=== PATIENT | male | born 1990 | race African-American/Black ===

== ENCOUNTER 2024-07-09 02:07 | Emergency (ER) | payer BC ==
[~2024-07-09] VITALS: Ht 193 cm; Wt 95.3 kg
[2024-07-09] MEDS ORDERED: ACETAMINOPHEN 500 MG TABLET ONE (04:44)
[2024-07-09 04:45] VITALS: TEMP 102.7
[2024-07-09] MEDS: ACETAMINOPHEN 500 MG TABLET PO ONE (04:45)
[2024-07-09 05:40] VITALS: BP 135/86; O2SAT 95
== END 2024-07-09 05:10 | disposition home or self-care (01) ==
LOC: ER 02:18
DX: J45.909 Unspecified asthma, uncomplicated (principal); B34.9 Viral infection, unspecified; R07.89 Other chest pain; Z20.822 Contact with and (suspected) exposure to COVID-19
CPT/HCPCS: 71045; A4606; A4663; A9150